=== PATIENT | male | born 1965 | race African-American/Black ===

== ENCOUNTER 2025-01-28 13:03 | Emergency (ER) | payer OTHER ==
[2025-01-28] MEDS ORDERED: Pantoprazole 40 MG VIAL ONE (13:35)
[2025-01-28] MEDS ORDERED: Ondansetron PF 4 MG/2 ML Vial ONE (13:35)
[2025-01-28 13:52] LABS: #Basophils 0.0 thou/uL (0.0-0.2); #Eosinophils 0.1 thou/uL (0.0-0.7); #Lymphocytes 0.4 thou/uL (1.20-3.40); #Monocytes 0.2 thou/uL (0.11-0.59); #Neutrophils 1.9 thou/uL (1.40-6.50); %Basophils 0.7 % (0.0-1.0); %Eosinophils 2.2 % (0.0-10.0); %Lymphocytes 16.7 % (21.0-51.0); %Monocytes 7.7 % (0.0-10.0); %Neutrophils 72.7 % (42.0-75.0); Hematocrit 36.9 % (42.0-52.0); Hemoglobin 12.3 g/dL (14.0-18.0); Mean Corpuscular Hemoglobin 30.5 pg (27.0-31.0); Mean Corpuscular Volume 91.8 fl (78.0-98.0); Platelet Count 45 10x3/uL (130-400); Red Blood Cell (RBC) Count 4.02 mill/uL (4.70-6.10); White Blood Cell (WBC) Count 2.7 10x3/uL (4.8-10.8)
[2025-01-28 13:57] LABS: ALT (SGPT) 23 U/L (Less than 45); AST (SGOT) 38 U/L (11-34); Albumin 3.4 g/dL (3.1-4.5); Alkaline Phosphatase 47 U/L (40-110); Anion Gap 11 mmol/L (10-20); BUN (Urea Nitrogen) 12 mg/dL (8.4-25.7); Bilirubin, Total 1.1 mg/dL (0.3-1.2); Calc. Creatinine Clearance 0 mL/min (70-130); Calcium 8.4 mg/dL (7.8-10.44); Carbon Dioxide 21 mmol/L (22-29); Chloride 114 mmol/L (98-107); Globulin 3.3 g/dL (2.4-3.5); Glucose 93 mg/dL (70-105); Lipase 49 U/L (8-78); Potassium 4.0 mmol/L (3.5-5.1); Sodium 142 mmol/L (136-145); Troponin I Less than 0.010 ng/mL (< 0.028)
[2025-01-28 14:24] LABS: INR-International Normal Ratio 1.3; Prothrombin Time 16.8 sec (12.0-14.7)
[2025-01-28 14:25] LABS: PTT 30.7 sec (22.9-36.1)
[2025-01-28 15:45] LABS: Glucose, Urine (Dipstick) Negative (Negative); Leukocyte Negative (Negative); Protein, Urine (Dipstick) Negative (Neg-Trace); Specific Gravity, Urine 1.010 (1.005-1.030)
[2025-01-28 15:46] LABS: CAUTI Indications for Culture Pelvic or flank pain; WBC/HPF None Seen HPF (0-3)
[2025-01-28 15:47] LABS: Urine Culture Reflex No No
== END 2025-01-28 16:34 ==
LOC: EEVIPCON 13:03 → NAV ERS 13:03
DX: S00.93XA Contusion of unspecified part of head, initial encounter (principal); K52.9 Noninfective gastroenteritis and colitis, unspecified; I10 Essential (primary) hypertension; J45.909 Unspecified asthma, uncomplicated; Z79.51 Long term (current) use of inhaled steroids; Z79.899 Other long term (current) drug therapy; W01.10XA Fall on same level from slipping, tripping and stumbling with subsequent striking against unspecified object, initial encounter; Y92.149 Unspecified place in prison as the place of occurrence of the external cause
CPT/HCPCS: 70450; 71045; 72125; 80053; 81001; 83690; 84484; 85025; 85610; 85730; 93005; 96361; 96374; 96375; J2405; J2470; J7030